=== PATIENT | male | born 2000 | race Caucasian/White ===

== ENCOUNTER 2022-04-09 13:30 | Outpatient (RCR) | payer OTHER | END 2022-04-30 | disposition home or self-care (01) | LOC: WSPT | DX: T33.832S Superficial frostbite of left toe(s), sequela (principal) ==

== ENCOUNTER 2022-05-27 09:45 | Outpatient (RCR) | payer OTHER | END 2022-05-31 | disposition home or self-care (01) | LOC: WSPT | DX: T33.832S Superficial frostbite of left toe(s), sequela (principal) ==

== ENCOUNTER 2022-06-30 16:30 | Outpatient (RCR) | payer OTHER | END 2022-07-01 | disposition home or self-care (01) | LOC: WSPT | DX: T33.832S Superficial frostbite of left toe(s), sequela (principal) ==

== ENCOUNTER → 2022-08-31 | Outpatient (RCR) | payer OTHER | END | disposition home or self-care (01) | LOC: WSC → WSPT 08-01 12:34 → WSC 09:45 | DX: T33.832S Superficial frostbite of left toe(s), sequela (principal); X58.XXXS Exposure to other specified factors, sequela ==